=== PATIENT | female | born 1930 | race Two or more races ===

== ENCOUNTER 2018-04-03 13:02 | Observation (INO) | payer OTHER ==
[~2018-04-03] VITALS: Ht 157.5 cm; Wt 62.6 kg
[2018-04-03 13:18] VITALS: Ht 157.5 cm; Wt 62.6 kg
[2018-04-03 14:13] LABS: microscopic required? NO
[2018-04-03 14:32] LABS: BASOPHIL % 0.6 % (0-2); PLATELET COUNT 196 x10^3mcL (130-400); RED CELL DISTRIBUTION WIDTH 13.8 % (11.5-14.5)
[2018-04-03 14:40] LABS: CALCIUM 8.9 mg/dL (8.5-10.1); CARBON DIOXIDE 29.6 mmol/L (21-32); CHLORIDE SERUM 100 mmol/L (98-107); CREATININE SERUM 0.7 mg/dL (0.6-1.0); GLUCOSE SERUM 101 mg/dL (74-106); SODIUM SERUM 134 mmol/L (136-145)
[2018-04-03 14:45] LABS: ALBUMIN 3.7 g/dL (3.4-5.0); ALKALINE PHOSPHATASE 85 U/L (46-116); ALT/SGPT 19 U/L (14-59); AMYLASE 73 U/L (25-115); AST/SGOT 22 U/L (15-37); BILIRUBIN TOTAL 0.5 mg/dL (0.20-1.00); CHOLESTEROL 135 mg/dL (<200); HDL CHOLESTEROL 47 mg/dL (40-60); LIPASE 189 IU/L (73-393); TOTAL PROTEIN, SERUM 7.3 g/dL (6.4-8.2)
[2018-04-03 16:13] LABS: urine erythrocyte NEGATIVE (NEGATIVE)
[2018-04-03] MEDS ORDERED: SIMVASTATIN10 M1 PO (17:48)
[2018-04-03] MEDS ORDERED: NEURONTIN100 MG PO (17:48)
[2018-04-03] MEDS ORDERED: GOOD SENSE OMEP20 MG PO (17:49)
[2018-04-03] MEDS ORDERED: DILTIAZEM HCL120 M2 PO (17:50)
[2018-04-03] MEDS ORDERED: PROAIR HFA8.5 GM IH (17:50)
[2018-04-03] MEDS ORDERED: ASPIR 8181 MG PO (17:51)
[2018-04-03 19:05] VITALS: BP 158/73
[2018-04-03 19:10] LABS: FREE T4 1.17 ng/dL (0.76-1.46); FREE THYROXINE INDEX 2.5 ug/dL (1.4-4.5); T4(THYROXINE) 7.9 ug/dL (4.7-13.3)
[2018-04-03 19:40] LABS: MAGNESIUM 2.2 mg/dL (1.8-2.4); PHOSPHOROUS 4.1 mg/dL (2.5-4.9)
[2018-04-03 20:31] VITALS: BP 150/67
[2018-04-03 20:57] VITALS: BP 150/67
[2018-04-03 21:13] VITALS: BP 152/69
[2018-04-03 22:27] VITALS: BP 146/69
[2018-04-03 23:06] LABS: T3 TOTAL 1.09 ng/mL
[2018-04-04 03:57] VITALS: BP 147/57
[2018-04-04 06:35] LABS: CARBON DIOXIDE 26.8 mmol/L (21-32); CHLORIDE SERUM 103 mmol/L (98-107); CREATININE SERUM 0.7 mg/dL (0.6-1.0); GLUCOSE SERUM 120 mg/dL (74-106); POTASSIUM SERUM 3.9 mmol/L (3.5-5.1); SODIUM SERUM 138 mmol/L (136-145)
[2018-04-04 06:37] LABS: PLATELET COUNT 170 x10^3mcL (130-400); RED CELL DISTRIBUTION WIDTH 13.9 % (11.5-14.5)
[2018-04-04 06:44] LABS: MAGNESIUM 2.2 mg/dL (1.8-2.4); PHOSPHOROUS 3.8 mg/dL (2.5-4.9)
[2018-04-04 08:22] LABS: ATYPICAL LYMPH 1 %; BAND NEUTROPHIL 3 % (0-10); BASOPHIL 0 % (0-2); MONOCYTE 8 % (0-7); SEGMENTED NEUTROPHILS 49 % (37-75)
[2018-04-04 08:23] LABS: PLATELET MORPHOLOGY PLATELETS DECREASED; rbc morphology (normal/abnorm) ABNORMAL (NORMAL)
[2018-04-04] MEDS ORDERED: ACTIGALL300 MG PO (08:48)
[2018-04-04 08:57] VITALS: BP 124/58
[2018-04-04 10:47] VITALS: BP 124/58
== END 2018-04-04 13:17 | disposition home or self-care (01) | DRG 445 ==
LOC: ED 13:02 → DU 17:36
PROVIDERS: Emergency Medicine; Family Medicine Sports Medicine
DX: K80.20 Calculus of gallbladder without cholecystitis without obstruction (principal); E87.1 Hypo-osmolality and hyponatremia; D68.59 Other primary thrombophilia; J84.10 Pulmonary fibrosis, unspecified; I10 Essential (primary) hypertension; E78.5 Hyperlipidemia, unspecified; R73.03 Prediabetes; M17.0 Bilateral primary osteoarthritis of knee; Z66 Do not resuscitate
CPT/HCPCS: 83880; 84439; 94150; G0378; J7030; J7620; Q0092